=== PATIENT | male | born 1990 | race Caucasian/White ===

== ENCOUNTER 2016-11-15 08:14 | Day surgery (SDC) | payer OTHER ==
--- NOTE | 2016-11-07 15:33 | HP ---
HISTORY AND PHYSICAL: DATE OF SURGERY/ADMISSION: 11/15/16 [facility] ATTENDING SURGEON: Dr. Matthews (DICTATED BY HARJIT ALANIS) PROCEDURE: Left hand mass excision. CHIEF COMPLAINT: Left hand pain. 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 He has tried conservative measures such as antiinflammatories; however, has elected to have the mass removed due to increased pain. PAST MEDICAL HISTORY: Asthma. PAST SURGICAL HISTORY: Noncontributory. MEDICATIONS: No medications currently. ALLERGIES: CEFTIN. FAMILY MEDICAL HISTORY: Positive for hypertension, stroke, and cancer. SOCIAL HISTORY: No tobacco use. Occasional alcohol use of 1 to 2 drinks per week. REVIEW OF SYSTEMS: General: Negative for fevers, chills, or night sweats. Past surgical history is unknown with anesthesia. HEENT: Negative for headache , lightheadedness, or syncopal episodes. Integument: Negative for abrasions, lesions, or open wounds. Cardiothoracic: Negative for hypertension, chest pain , or palpitations. Pulmonary: Negative for shortness of breath, chronic cough , or COPD. GI: Negative for nausea, vomiting, constipation, diarrhea, or GERD. : Negative for nocturia, urinary frequency, or urgency, history of UTIs or kidney problems. Musculoskeletal: Positive for left arm pain. Negative for arthritis or other joint pains. Neuro: Negative for paresthesias or numbness. No history of seizures or epilepsy. Endocrine: Negative for diabetes or thyroid disease. Hematologic: Negative for easy bruising, anemia, or excessive bleeding. No history of DVT. Infectious Disease: Negative for MRSA, hepatitis C, or HIV. PHYSICAL EXAMINATION GENERAL: Well appearing, in no acute distress. Alert and oriented. VITAL SIGNS: Height 69.5, weight 163 pounds. Pulse 52, blood pressure 104/60, respirations 16, temperature 97.3. BMI 23.7. HEENT: Normocephalic, atraumatic. EOMI. PULMONARY: Lungs are clear to auscultation bilaterally. No crackles, rhonchi or wheezes. CARDIAC: Regular rate and rhythm. No murmurs, gallops, or rubs. ABDOMEN: Negative CVA tenderness bilaterally. NEUROLOGIC: Alert and oriented x3. Cranial nerves grossly intact. Sensation intact to light touch, bilateral upper extremities. MUSCULOSKELETAL: Full range of motion of left thumb with full home demonstrator strength, bilateral upper extremities. Radial and ulnar pulses 2+. Cap refill 2+ bilaterally. Tenderness noted in between third and fourth metatarsals with a roughly 1 cm mass noted. STUDIES: Radiographs negative for any . IMPRESSION: The patient is a pleasant 26-year-old male who has elected to undergo excision of a mass in his left hand. Tylenol No. 3 was sent to the patient's pharmacy for postoperative pain management. He will follow up with Dr. Matthews at approximately 10 days postoperative for suture removal any other questions or concerns and he will call us if any do arise. HARJIT ALANIS [id number]/[facility] #: [id number] MTDJessica
[~2016-11-15 08:14] MED LIST: Buffered Lidocaine 0.9% SYRIN* 5 ML/SYR SYRINGE INTRADERM ONE
[2016-11-15] MEDS ORDERED: PROCHLORPERAZINE INJ 5 MG/ML 2 ML VIAL IV PRN (08:57)
[2016-11-15] MEDS ORDERED: Acetaminophen TAB* 325 MG PO PRN (08:57)
[2016-11-15] MEDS ORDERED: HYDROcodone/ACETAMIN 5-325 MG* 1 TAB PO PRN (08:57)
[2016-11-15] MEDS ORDERED: Ondansetron INJ* 2 MG/ML VIAL IV PRN (08:57)
[2016-11-15] MEDS ORDERED: Lidocaine 1% INJ* 10 MG/ML 30 ML SDV ONE (09:00)
[2016-11-15] MEDS ORDERED: Midazolam* 1 MG/ML 2 ML VIAL (2 MG) ONE (09:44)
[2016-11-15] MEDS ORDERED: fentaNYL* 50 MCG/ML 2 ML VIAL (100 MCG VIAL) ONE (09:44)
[2016-11-15] MEDS ORDERED: Ketorolac INJ* 30 MG/ML 1 ML VIAL ONE (10:05)
[2016-11-15] MEDS ORDERED: Lidocaine 2% PF * 5 ML VIAL ONE (10:05)
[2016-11-15] MEDS ORDERED: Propofol* 10 MG/ML 20 ML BTL IV PUSH ONE (10:05)
[2016-11-15 10:36] VITALS: BP 117/63
--- NOTE | 2016-11-15 12:09 | OP ---
DATE OF OPERATION: 11/15/[address] [facility] DATE OF : 89 SURGEON: Oralia Matthews MD ANIMAL BOUNTY HUNTER: HARJIT Montero. ANESTHESIA: Local MAC. PRE-OP DIAGNOSIS: Left hand mass. POST-OP DIAGNOSIS: Left hand mass. OPERATIVE PROCEDURE: Removal of left hand mass. ESTIMATED BLOOD LOSS: Zero. TOURNIQUET TIME: About 8 minutes. INDICATIONS FOR PROCEDURE: Bennett is a 26-year-old male with a bothersome mass in the palm of his left hand. It is gradually getting more bothersome overtime. He presents for removal of left hand mass. DESCRIPTION OF PROCEDURE: The patient was brought to the operating room, was given a sedation anesthetic and local infiltration of 10 cc of 1% plain lidocaine in the palm of his left hand. The skin of his left hand and forearm was prepped and draped in the usual sterile fashion. The hand and forearm were exsanguinated and the tourniquet elevated to 250 mmHg. A diagonal incision was made centered over the mass. We dissected bluntly through the subcutaneous tissue. The mass appeared to be some fibrous tissue, perhaps a Dupuytren's nodule. The mass was removed in its entirety. The underlying digital neurovascular bundles are protected by the regional vice president surgical sales, Mindy Whitley, with retractors. The wound was irrigated and the skin edges were reapproximated with 4-0 nylon sutures. The wound was dressed with Xeroform, 4x4 , Webril, and an Rip wrap. The patient tolerated the procedure well and was brought to the recovery room in good condition. [id number]/[facility] [place]: [id number] NUVANCE HEALTHJessica
== END 2016-11-15 10:49 | disposition home or self-care (01) ==
LOC: OREAST 08:14
PROVIDERS: ATTEND Orthopaedic Surgery
DX: M72.0 Palmar fascial fibromatosis [Dupuytren] (principal); J45.909 Unspecified asthma, uncomplicated; Z88.1 Allergy status to other antibiotic agents
CPT/HCPCS: 88304; J1885; J2001; J2250; J2704; J3010